=== PATIENT | male | born 1990 | race Caucasian/White ===

== ENCOUNTER 2019-06-22 14:12 | Emergency (ER) | payer MEDICAID ==
[~2019-06-22] VITALS: Ht 185.4 cm; Wt 87.2 kg
--- NOTE | 2019-06-22 14:20 | NUR ---
FRITZ 59 FROM HOME C/O ALTERED MENTAL STATUS, +ETOH, "TOOK 1 AND 1/2 PILL OF XANAX", TO ER BED 10, HOOKED TO MONITOR, CHANGED TO GOWN, PROVIDED W WARM BLANKET, AWAITING MD GRAHAM
--- NOTE | 2019-06-22 14:23 | NUR ---
DR MESSER AT BEDSIDE
[2019-06-22] MEDS ORDERED: ONDANSETRON HCL/PF 4 MG/2 ML VIAL IVP ONE (14:30)
[2019-06-22 14:38] LABS: BASOPHILS % (AUTO) 0.5 % (0.0-2.0); EOSINOPHILS % (AUTO) 0.8 % (0.0-6.0); HEMATOCRIT 45 % (39-51); HEMOGLOBIN 15.5 g/dL (13.5-17.5); LYMPHOCYTES # (AUTO) 1.1 /CMM (0.8-4.8); LYMPHOCYTES % (AUTO) 17.3 % (20.0-44.0); MEAN CORPUSCULAR HGB CONC 35 g/dl (31.0-36.0); MEAN CORPUSCULAR VOLUME 96 fL (80-96); MONOCYTES # (AUTO) 0.8 /CMM (0.1-1.30); MONOCYTES % (AUTO) 12.9 % (2.0-12.0); NEUTROPHILS # (AUTO) 4.3 /CMM (1.8-8.9); NEUTROPHILS % (AUTO) 68.5 % (43.0-81.0); PLATELET COUNT (AUTO) 135 /CMM (150-450); RED BLOOD CELL COUNT(AUTO) 4.64 MIL/uL (4.5-6.0); WHITE BLOOD COUNT (AUTO) 6.3 K/uL (4.3-11.0)
[2019-06-22] MEDS ORDERED: ONDANSETRON HCL/PF 4 MG/2 ML VIAL ONE (14:40)
[2019-06-22] MEDS ORDERED: ACETAMINOPHEN ES 500 MG TABLET ONE (14:40)
[2019-06-22] MEDS: ACETAMINOPHEN ES 500 MG TABLET PO ONE ×2 (14:45→15:00)
[2019-06-22 14:51] LABS: CALCIUM, SERUM 8.9 mg/dL (8.5-10.1); CARBON DIOXIDE 27 mmol/L (21-32); CHLORIDE 100 mmol/L (98-107); GLUCOSE 104 mg/dL (74-106); POTASSIUM 3.7 mmol/L (3.5-5.1); SODIUM SERUM 142 mmol/L (136-145); UREA NITROGEN, BLOOD 3 mg/dL (7-18)
[2019-06-22 14:56] LABS: ALANINE AMINOTRANSFERASE 294 U/L (12-78); ALBUMIN 4.4 g/dL (3.4-5.0); ALKALINE PHOSPHATASE 72 U/L (46-116); ASPARTATE AMINOTRANSFERASE 533 U/L (15-37); BILIRUBIN,DIRECT 0.6 mg/dL (0.0-0.2); LIPASE 280 U/L (73-393); TOTAL PROTEIN, SERUM 8.2 g/dL (6.4-8.2)
--- NOTE | 2019-06-22 19:14 | NUR ---
REPORT GIVEN TO RYAN GUILLAUME FOR DEMETRIUS
--- NOTE | 2019-06-22 19:53 | NUR ---
Patient discharged to home in stable condition. Written and verbal after care instructions given. Patient verbalizes understanding of instruction.IV removed. Catheter intact and site benign. Pressure and 4x4 applied to site. No bleeding noted.Pt ambulatory with a steady gait
[2019-06-22 19:54] VITALS: BP 119/79
== END 2019-06-22 19:54 | disposition home or self-care (01) ==
LOC: ER 14:17
DX: S61.501A Unspecified open wound of right wrist, initial encounter (principal); F13.10 Sedative, hypnotic or anxiolytic abuse, uncomplicated; F10.129 Alcohol abuse with intoxication, unspecified; R00.0 Tachycardia, unspecified; Y90.8 Blood alcohol level of 240 mg/100 ml or more; X58.XXXA Exposure to other specified factors, initial encounter; Y93.89 Activity, other specified; Y92.89 Other specified places as the place of occurrence of the external cause; Y99.8 Other external cause status
CPT/HCPCS: 36415; 80048; 80076; 80307; 83690; 84484; 85025; 96374; 99283; J2405; G0480; J7030